=== PATIENT | female | born 1980 | race Caucasian/White ===

== ENCOUNTER → 2018-08-03 | Outpatient (CLI) | payer OTHER | LOC: LAB 16:18 | DX: Z86.19 Personal history of other infectious and parasitic diseases (principal) ==

== ENCOUNTER 2020-05-05 10:33 | Emergency (ER) | payer OTHER ==
[2020-05-05 11:58] LABS: ALBUMIN 3.3 g/dL (3.5-5.0)
[2020-05-05 11:59] LABS: CALCIUM 8.7 mg/dL (8.3-10.5)
[2020-05-05 12:00] LABS: TOTAL PROTEIN 8.2 g/dL (6.4-8.3)
[2020-05-05 12:02] LABS: TOTAL BILIRUBIN 0.5 mg/dL (0.2-1.2)
[2020-05-05 12:19] LABS: HEMATOCRIT 22.4 % (37.0-47.0); MEAN CELL VOLUME 57 fl (78-100); MEAN CORPUSCULAR HEMOGLOBIN 15 pg (27-31); MEAN CORPUSCULAR HGB CONC 27 g/dL (33-37); MEAN PLATELET VOLUME 8.9 fl (7.4-10.4); PLATELET COUNT 922 K/mm3 (130-400); RED BLOOD COUNT 3.93 M/mm3 (4.10-5.30); RED CELL DISTRIBUTION WIDTH 20.5 % (11.5-14.5); WHITE BLOOD COUNT 26.9 K/mm3 (4.8-10.8)
[2020-05-05 12:22] LABS: POTASSIUM 2.8 mmol/L (3.5-5.1)
[2020-05-05 12:39] LABS: BAND 10 % (0-10); LYMPHOCYTE 7 % (20-51); MICROCYTOSIS 4+; MONOCYTE 3 % (3-10); MYELOCYTE 1 % (0-0); NEUTROPHILS 79 % (42-75)
[2020-05-05 12:40] LABS: HYPOCHROMIA 4+
[2020-05-05 13:31] LABS: MAGNESIUM 2.19 mg/dL (1.60-2.60)
[2020-05-05 13:40] LABS: D-DIMER 9.99 mg/L FEU (0.15-0.50)
[2020-05-05 13:40] LABS: TROPONIN-I < 0.03 ng/mL (<0.030)
[2020-05-05 15:21] VITALS: BP 107/72
== END 2020-05-05 15:13 | disposition short-term general hospital (02) ==
LOC: ED 10:33
PROVIDERS: Nurse Practitioner
DX: U07.1 COVID-19 (principal); D64.9 Anemia, unspecified; K35.32 Acute appendicitis with perforation, localized peritonitis, and gangrene, without abscess; K56.609 Unspecified intestinal obstruction, unspecified as to partial versus complete obstruction; Z32.02 Encounter for pregnancy test, result negative
CPT/HCPCS: J2543; J3480; J7030; Q9967

== ENCOUNTER → 2021-02-16 | Outpatient (CLI) | payer OTHER | LOC: RAD 09:21 | DX: M79.671 Pain in right foot (principal) ==